=== PATIENT | male | born 1990 | race Two or more races ===

== ENCOUNTER 2016-11-03 12:58 | Emergency (ER) | payer OTHER ==
[~2016-11-03] VITALS: Ht 190.5 cm; Wt 68.0 kg
[2016-11-03 13:07] VITALS: BP 147/71
== END 2016-11-03 14:09 | disposition home or self-care (01) ==
LOC: ER 13:02
DX: R11.2 Nausea with vomiting, unspecified (principal); R19.7 Diarrhea, unspecified; K08.89 Other specified disorders of teeth and supporting structures
CPT/HCPCS: A4606; Q0162; Z7610

== ENCOUNTER 2019-02-25 08:51 | Emergency (ER) | payer OTHER ==
[~2019-02-25] VITALS: Ht 188 cm; Wt 72.6 kg
--- NOTE | 2019-02-25 09:00 | NUR ---
fever that started yesterday. also c/o non traumatic lower back pain. Patient a/ox4, no distress noted. Needs attended. Changed into gown.
[2019-02-25] MEDS ORDERED: ACETAMINOPHEN 325 MG TABLET ONE (09:13)
[2019-02-25] MEDS ORDERED: IBUPROFEN 600 MG TABLET PO ONE ×2 (09:13→09:30)
[2019-02-25] MEDS ORDERED: IV NS 0.9% 1,000 ML IV ONE (09:30)
[2019-02-25] MEDS ORDERED: ACETAMINOPHEN 650 MG/20.3 ML UDC PO ONE (09:30)
--- NOTE | 2019-02-25 10:36 | NUR ---
Patient is resting comfortably in bed with eyes closed. Easily aroused. VSS
--- NOTE | 2019-02-25 10:56 | NUR ---
IV removed. Catheter intact and site benign. Pressure and 4x4 applied to site. No bleeding noted.Patient discharged to home in stable condition. Written and verbal after care instructions given. Patient verbalizes understanding of instruction.
[2019-02-25 11:33] VITALS: BP 128/58
== END 2019-02-25 11:33 | disposition home or self-care (01) ==
LOC: ER 08:56
DX: J10.1 Influenza due to other identified influenza virus with other respiratory manifestations (principal)
CPT/HCPCS: 87804 ×2; 99283; J7030